=== PATIENT | male | born 1940 | race Caucasian/White ===

== ENCOUNTER → 2020-08-27 | Outpatient (CLI) | payer MEDICARE ==
[~2020-08-27] MED LIST: REGADENOSON 0.4 MG/5 ML SYRINGE ONE
== END | disposition home or self-care (01) ==
LOC: CFH 08:31
PROVIDERS: ATTEND Internal Medicine Cardiovascular Disease
DX: I08.8 Other rheumatic multiple valve diseases (principal); I25.10 Atherosclerotic heart disease of native coronary artery without angina pectoris
CPT/HCPCS: 78452; 93017; 93306; A9502; J2785

== ENCOUNTER 2020-11-07 08:27 | Day surgery (SDC) | payer MEDICARE ==
[~2020-11-07] VITALS: Ht 172.7 cm; Wt 88.6 kg
[2020-11-07] MEDS ORDERED: HEPARIN 1,000 UNITS/ML, 10ML ONE (08:35)
[2020-11-07] MEDS ORDERED: VERAPAMIL 2.5 MG/ML, 2ML ONE (08:35)
[2020-11-07] MEDS ORDERED: MIDAZOLAM 1 MG/ML, 5ML ONE (08:35)
[2020-11-07] MEDS ORDERED: FENTANYL PF 100 MCG/2ML ONE (08:35)
[2020-11-07] MEDS ORDERED: LIDOCAINE-MPF 1%, 5ML ONE (08:35)
[2020-11-07] MEDS ORDERED: NITROGLYCERIN 5 MG/ML, 10ML ONE (08:36)
[2020-11-07] MEDS ORDERED: DIPHENHYDRAMINE 50 MG/ML, 1ML IVPush ONE (09:30)
[2020-11-07] MEDS ORDERED: SODIUM CHLORIDE 0.9% 1,000 ML IV SCH (09:30)
[2020-11-07] MEDS ORDERED: ROSU10TA2 PO (09:45)
[2020-11-07] MEDS ORDERED: ASPI81TA45 PO (09:45)
[2020-11-07] MEDS ORDERED: MAGN400T36 PO (09:45)
[2020-11-07] MEDS ORDERED: AMLO-150 PO (09:45)
[2020-11-07] MEDS ORDERED: FLAX10004 PO (09:45)
[2020-11-07] MEDS ORDERED: OMEG1CAP23 PO (09:45)
[2020-11-07] MEDS ORDERED: TERA5CAP3 PO (09:45)
[2020-11-07] MEDS ORDERED: OMEP-110 PO (09:45)
[2020-11-07] MEDS ORDERED: METO50TA82 PO (09:45)
[2020-11-07] MEDS ORDERED: CALC-175 PO (09:45)
[2020-11-07] MEDS ORDERED: LORA-247 PO (09:45)
[2020-11-07 09:57] VITALS: BP 139/95
[2020-11-07] MEDS ORDERED: PLEASE ENTER HEIGHT AND WEIGHT MC SCH (10:00)
[2020-11-07 10:21] LABS: ANION GAP 4 mmol/L (5-15); CALCIUM 8.2 mg/dL (8.5-10.1); CHLORIDE 109 mmol/L (98-107); CHOLESTEROL, TOTAL 130 mg/dL (140-239); CREATININE 0.95 mg/dL (0.7-1.3); TRIGLYCERIDES 121 mg/dL (50-200); VLDL CHOLESTEROL 24 mg/dL (0-25)
[2020-11-07 10:22] LABS: CHOL/HDL RATIO 2.7; HDL CHOL % 37 % (26-37); HDL CHOLESTEROL (DIRECT) 48 mg/dL (40-60); LDL CHOLESTEROL,CALCULATED 58 mg/dL (54-169); LDL/HDL RATIO 1.2 (0.5-3.0)
[2020-11-07] MEDS ORDERED: DIPHENHYDRAMINE 50 MG/ML, 1ML ONE (10:35)
[2020-11-07] MEDS ORDERED: LIDOCAINE 2%, 20ML ONE (11:08)
== END 2020-11-07 13:12 | disposition home or self-care (01) ==
LOC: CACL 08:27
PROVIDERS: ATTEND Internal Medicine Cardiovascular Disease
DX: R94.39 Abnormal result of other cardiovascular function study (principal); I25.119 Atherosclerotic heart disease of native coronary artery with unspecified angina pectoris; I70.201 Unspecified atherosclerosis of native arteries of extremities, right leg; I10 Essential (primary) hypertension; E78.2 Mixed hyperlipidemia; Z88.8 Allergy status to other drugs, medicaments and biological substances; Z95.5 Presence of coronary angioplasty implant and graft
CPT/HCPCS: 36415; 80048; 80061; 93454; 99156; 99157; J1200; J1644; J2250; J3010